=== PATIENT | female | born 1990 | race Caucasian/White ===

== ENCOUNTER 2017-08-01 18:54 | Emergency (ER) | payer OTHER ==
[2017-08-01] MEDS ORDERED: NS 0.9% 1000 ML* 1,000 ML IV ONE (21:53)
[2017-08-01 22:18] LABS: Hematocrit 40 % (35-47); Hemoglobin 13.1 g/dl (12.0-16.0); Mean Corpuscular HGB Conc 33 g/dl (31-36); Mean Corpuscular Hemoglobin 29 pg (27-31); Mean Corpuscular Volume 89 fL (80-97); Mean Platelet Volume 8 um3 (7.4-10.4); Red Blood Count 4.53 10^6/ul (4.0-5.4); Red Cell Distribution Width 13 % (10.5-15); White Blood Count 11.1 10^3/ul (3.5-10.8)
[2017-08-01 22:34] LABS: ALT 10 U/L (7-52); AST 13 U/L (13-39); Albumin 4.4 g/dL (3.2-5.2); Alkaline Phosphatase 35 U/L (34-104); Anion Gap 6 mmol/L (2-11); BUN/Creatinine Ratio 12.5 (8-20); Blood Urea Nitrogen 7 mg/dL (6-24); C Reactive Protein 4.03 mg/L (< 5.00); CO2 Carbon Dioxide 26 mmol/L (22-32); Calcium 9.2 mg/dL (8.6-10.3); Chloride 106 mmol/L (101-111); Creatine Kinase 46 U/L (10-223); EGFR Non-African American 129.9 (>60); Globulin 2.8 g/dL (2-4); Glucose 95 mg/dL (70-100); Lipase 21 U/L (11.0-82.0); Magnesium 2.2 mg/dL (1.9-2.7); Potassium 3.6 mmol/L (3.5-5.0); Sodium 138 mmol/L (133-145); Total Protein 7.2 g/dL (6.4-8.9)
[2017-08-01 22:42] LABS: Urine Bilirubin Negative (Negative); Urine Glucose Negative (Negative); Urine Nitrite Negative (Negative)
[2017-08-01 22:57] LABS: TSH (Thyroid Stimulating Horm) 3.31 mcIU/mL (0.34-5.60)
[2017-08-02 00:11] VITALS: BP 117/67
--- NOTE | 2017-08-02 00:46 | ED ---
Wayne Carter Nikita, scribed for Weston Crooks MD on 08/01/17 at 2153 . HPI Chest Pain - HPI Summary HPI Summary: This patient is a 26 year old F presenting to ED with a chief complaint of L- sided CP since last night. The CC is described as tight, pressure, sharp, and non-radiating. The patient rates the pain 4/10 in severity. Symptoms aggravated by deep breathing, movement, leaning over, and talking. Symptoms alleviated by sitting up. Patient denies URI symptoms, abdominal pain, SOB, nausea, and diaphoresis. Pt is not taking BCP. Pt is a non-smoker. - History of Current Complaint Chief Complaint: EDChestPainROMI Time Seen by Provider: 08/01/17 21:44 Hx Obtained From: Patient Onset/Duration: Started Days Ago - last night, Still Present Timing: Constant, Lasting Days Initial Severity: Severe Current Severity: Severe Pain Intensity: 4 Pain Scale Used: 0-10 Numeric Chest Pain Location: Discrete at: - L-sided Chest Pain Radiates: No Character: Pressure/Squeezing, Sharp/Stabbing, Tightness Aggravating Factor(s): Position - leaning over, Movement, Deep Breaths, Other: - talking Alleviating Factor(s): Position - sitting up Associated Signs and Symptoms: Positive: Other: - Patient denies URI symptoms, abdominal pain, SOB, nausea, and diaphoresis. - Allergy/Home Medications Allergies/Adverse Reactions: Allergies Allergy/AdvReac Type Severity Reaction Status Date / Time Amoxicillin [From Augmentin] AdvReac Unknown Verified 08/01/17 22:19 Reaction Details Clavulanic Acid AdvReac Unknown Verified 08/01/17 22:19 [From Augmentin] Reaction Details PMH/Surg Hx/FS Hx/Imm Hx Endocrine/Hematology History: Denies: Hx Diabetes Cardiovascular History: Denies: Hx Coronary Artery Disease, Hx Hypertension Infectious Disease History: No Infectious Disease History: Denies: Traveled Outside the [place] in Last 30 Days - Family History Known Family History: Positive: Unknown - pt is adopted - Social History Alcohol Use: Occasionally Substance Use Type: Reports: None Smoking Status (MU): Never Smoked Tobacco Review of Systems Negative: Skin Diaphoresis Positive: Chest Pain - L-sided CP Positive: Other - denies URI symptoms. Negative: Shortness Of Breath Negative: Abdominal Pain, Nausea All Other Systems Reviewed And Are Negative: Yes Physical Exam Triage Information Reviewed: Yes Vital Signs On Initial Exam: Initial Vitals Temp Pulse Resp BP Pulse Ox 98.5 F 66 18 140/81 100 08/01/17 18:57 08/01/17 18:57 08/01/17 18:57 08/01/17 18:57 08/01/17 18:57 Vital Signs Reviewed: Yes Appearance: Positive: Well-Appearing, No Pain Distress Skin: Positive: Warm, Skin Color Reflects Adequate Perfusion, Dry Head/Face: Positive: Normal Head/Face Inspection Eyes: Positive: EOMI, KULDIP ENT: Positive: Normal ENT inspection Neck: Positive: Supple, Nontender Respiratory/Lung Sounds: Positive: Clear to Auscultation, Breath Sounds Present Cardiovascular: Positive: RRR Abdomen Description: Positive: Nontender, Soft Bowel Sounds: Positive: Present Musculoskeletal: Positive: Normal, Strength/ROM Intact Neurological: Positive: Normal, Sensory/Motor Intact, Alert, Oriented to Person Place, Time Psychiatric: Positive: Affect/Mood Appropriate - [place] Coma Scale Coma Scale Total: 15 Diagnostics - Vital Signs Vital Signs Temp Pulse Resp BP Pulse Ox 08/01/17 18:57 98.5 F 66 18 140/81 100 - Laboratory Lab Results: Lab Results 08/01/17 08/01/17 08/01/17 Range/Units 22:08 22:08 22:08 WBC (3.5-10.8) 10^3/ul RBC (4.0-5.4) 10^6/ul Hgb (12.0-16.0) g/dl Hct (35-47) % MCV (80-97) fL MCH (27-31) pg MCHC (31-36) g/dl RDW (10.5-15) % Plt Count (150-450) 10^3/ul MPV (7.4-10.4) um3 Neut % (Auto) (38-83) % Lymph % (Auto) (25-47) % Mckinley % (Auto) (1-9) % Eos % (Auto) (0-6) % Baso % (Auto) (0-2) % Absolute Neuts (auto) (1.5-7.7) 10^3/ul Absolute Lymphs (auto) (1.0-4.8) 10^3/ul Absolute Monos (auto) (0-0.8) 10^3/ul Absolute Eos (auto) (0-0.6) 10^3/ul Absolute Basos (auto) (0-0.2) 10^3/ul Absolute Nucleated RBC 10^3/ul Nucleated RBC % INR (Anticoag Therapy) 1.02 (0.89-1.11) APTT 37.4 H (26.0-36.3) seconds D-Dimer, Quantitative < 200 (Less Than 230) ng/mL Sodium 138 (133-145) mmol/L Potassium 3.6 (3.5-5.0) mmol/L Chloride 106 (101-111) mmol/L Carbon Dioxide 26 (22-32) mmol/L Anion Gap 6 (2-11) mmol/L BUN 7 (6-24) mg/dL Creatinine 0.56 (0.51-0.95) mg/dL Est GFR ( Amer) 167.0 (>60) Est GFR (Non-Af Amer) 129.9 (>60) BUN/Creatinine Ratio 12.5 (8-20) Glucose 95 (70-100) mg/dL Lactic Acid (0.5-2.0) mmol/L Calcium 9.2 (8.6-10.3) mg/dL Magnesium 2.2 (1.9-2.7) mg/dL Total Bilirubin 1.10 H (0.2-1.0) mg/dL AST 13 (13-39) U/L ALT 10 (7-52) U/L Alkaline Phosphatase 35 (34-104) U/L Total Creatine Kinase 46 (10-223) U/L CK-MB (CK-2) 0.6 (0.6-6.3) ng/mL Troponin I 0.00 (<0.04) ng/mL C-Reactive Protein 4.03 (< 5.00) mg/L B-Natriuretic Peptide 10 ( - 100) pg/mL Total Protein 7.2 (6.4-8.9) g/dL Albumin 4.4 (3.2-5.2) g/dL Globulin 2.8 (2-4) g/dL Albumin/Globulin Ratio 1.6 (1-3) Lipase 21 (11.0-82.0) U/L TSH 3.31 (0.34-5.60) mcIU/mL Beta HCG, Quant < 0.60 mIU/mL Urine Color Urine Appearance Urine pH (5-9) Ur Specific Custer (1.010-1.030) Urine Protein (Negative) Urine Ketones (Negative) Urine Blood (Negative) Urine Nitrate (Negative) Urine Bilirubin (Negative) Urine Urobilinogen (Negative) Ur Leukocyte Esterase (Negative) Urine Glucose (Negative) 08/01/17 08/01/17 08/01/17 Range/Units 22:08 22:08 22:30 WBC 11.1 H (3.5-10.8) 10^3/ul RBC 4.53 (4.0-5.4) 10^6/ul Hgb 13.1 (12.0-16.0) g/dl Hct 40 (35-47) % MCV 89 (80-97) fL MCH 29 (27-31) pg MCHC 33 (31-36) g/dl RDW 13 (10.5-15) % Plt Count 260 (150-450) 10^3/ul MPV 8 (7.4-10.4) um3 Neut % (Auto) 59.1 (38-83) % Lymph % (Auto) 32.0 (25-47) % Mckinley % (Auto) 7.7 (1-9) % Eos % (Auto) 0.5 (0-6) % Baso % (Auto) 0.7 (0-2) % Absolute Neuts (auto) 6.6 (1.5-7.7) 10^3/ul Absolute Lymphs (auto) 3.6 (1.0-4.8) 10^3/ul Absolute Monos (auto) 0.9 H (0-0.8) 10^3/ul Absolute Eos (auto) 0.1 (0-0.6) 10^3/ul Absolute Basos (auto) 0.1 (0-0.2) 10^3/ul Absolute Nucleated RBC 0 10^3/ul Nucleated RBC % 0 INR (Anticoag Therapy) (0.89-1.11) APTT (26.0-36.3) seconds D-Dimer, Quantitative (Less Than 230) ng/mL Sodium (133-145) mmol/L Potassium (3.5-5.0) mmol/L Chloride (101-111) mmol/L Carbon Dioxide (22-32) mmol/L Anion Gap (2-11) mmol/L BUN (6-24) mg/dL Creatinine (0.51-0.95) mg/dL Est GFR ( Amer) (>60) Est GFR (Non-Af Amer) (>60) BUN/Creatinine Ratio (8-20) Glucose (70-100) mg/dL Lactic Acid 0.8 (0.5-2.0) mmol/L Calcium (8.6-10.3) mg/dL Magnesium (1.9-2.7) mg/dL Total Bilirubin (0.2-1.0) mg/dL AST (13-39) U/L ALT (7-52) U/L Alkaline Phosphatase (34-104) U/L Total Creatine Kinase (10-223) U/L CK-MB (CK-2) (0.6-6.3) ng/mL Troponin I (<0.04) ng/mL C-Reactive Protein (< 5.00) mg/L B-Natriuretic Peptide ( - 100) pg/mL Total Protein (6.4-8.9) g/dL Albumin (3.2-5.2) g/dL Globulin (2-4) g/dL Albumin/Globulin Ratio (1-3) Lipase (11.0-82.0) U/L TSH (0.34-5.60) mcIU/mL Beta HCG, Quant mIU/mL Urine Color Yellow Urine Appearance Clear Urine pH 8.0 (5-9) Ur Specific Custer 1.012 (1.010-1.030) Urine Protein Negative (Negative) Urine Ketones Negative (Negative) Urine Blood Negative (Negative) Urine Nitrate Negative (Negative) Urine Bilirubin Negative (Negative) Urine Urobilinogen Negative (Negative) Ur Leukocyte Esterase Negative (Negative) Urine Glucose Negative (Negative) Result Diagrams: 08/01/17 22:08 08/01/17 22:08 Lab Statement: Any lab studies that have been ordered have been reviewed, and results considered in the medical decision making process. - Radiology CXR Radiology Interpretation Completed By: ED Physician - NAD - EKG 2202 Cardiac Rate: Bradycardia EKG Rhythm: Sinus Bradycardia - [address] Segment: Normal Ectopy: None Re-Evaluation - Re-Evaluation First Eval Re-Evaluation Time: 23:54 Comment: Discussed results and discharge plan with pt. Chest Pain Course/Dx - Course Assessment/Plan: This patient is a 26 year old F presenting to ED with a chief complaint of L-sided CP since last night. The CC is described as tight, pressure , sharp, and non-radiating. The patient rates the pain 4/10 in severity. Symptoms aggravated by deep breathing, movement, leaning over, and talking. Symptoms alleviated by sitting up. Patient denies URI symptoms, abdominal pain, SOB, nausea, and diaphoresis. BP noted and advised to follow up with PCP. Medications reviewed. Allergies noted. CXR reveals NAD. EKG reveals sinus bradycardia at 53 bpm, nml ST, and no ectopy. In the ED course, pt was given fluids. Pt will be discharged. Pt is agreeable with this plan. DISCUSSED RESULT WITH PATIENT. NL EKG/TROPONIN/DDIMER. PERICARDITIS STILL A POSSIBILITY. TAKE IBUPROFEN AND F/U WITH [facility]; RETURN TO ED IF WORSE. WE DISCUSSED S/SX OF PERICARDITIS; PATIENT KNOW TO RETURN TO ED IF WORSE. - Diagnoses Provider Diagnoses: Chest pain Discharge - Discharge Plan Condition: Stable Disposition: HOME Patient Education Materials: Chest Pain (ED) Referrals: [facility] - [facility]ena [Primary Care Provider] - Additional Instructions: FOLLOW UP WITH [facility]. TAKE IBUPROFEN 600MG EVERY 6 HOURS NEEDED. RETURN TO THE EMERGENCY DEPARTMENT FOR ANY WORSENING OF YOUR CONDITION; PAIN, SHORTNESS OF BREATH, FEVER, YOU FEEL ILL OR QUESTIONS OR CONCERNS. The documentation as recorded by the Wayne alvarado Nikita accurately reflects the service I personally performed and the decisions made by me, Weston Crooks MD.
--- NOTE | 2017-08-02 07:11 | RAD ---
INDICATION: Splinting chest pain. COMPARISON: There are no prior studies available for comparison. TECHNIQUE: A portable view of the chest was obtained. FINDINGS: Cardiac and mediastinal contours appear to be within normal limits. The lungs are underinflated and clear. No pleural effusion or pneumothorax is seen. IMPRESSION: NO EVIDENCE FOR ACUTE DISEASE.
== END 2017-08-02 00:16 | disposition home or self-care (01) ==
LOC: ED 18:54
DX: R07.9 Chest pain, unspecified (principal)
CPT/HCPCS: 36415; 71010; 80053; 81003; 82550; 82553; 83605; 83690; 83735; 83880; 84443; 84484; 84702; 85025; 85379; 85610; 85730; 86140; 93005; 99282